=== PATIENT | female | born 1990 | race Hispanic/Latino ===

== ENCOUNTER 2021-07-30 11:47 | Emergency (ER) | payer SELFPAY ==
[~2021-07-30] VITALS: Ht 157.5 cm; Wt 61.2 kg
== END 2021-07-30 12:19 | disposition home or self-care (01) ==
LOC: ER 12:03
DX: R05.9 Cough, unspecified (principal); J06.9 Acute upper respiratory infection, unspecified
CPT/HCPCS: 99282

== ENCOUNTER 2022-09-24 14:58 | Emergency (ER) | payer SELFPAY ==
[~2022-09-24] VITALS: Ht 154.9 cm; Wt 72.6 kg
[2022-09-24] MEDS ORDERED: KETOROLAC TROMETHAMINE 30 MG/ML VIAL IV STA (15:23)
[2022-09-24 15:40] LABS: BASOPHILS % 0.3 % (0.0-1.0); EOSINOPHILS # (AUTO) 0.2 (0.0-0.4); EOSINOPHILS % 1.2 % (0.0-6.0); LYMPHOCYTES # (AUTO) 2.1 (1.0-3.2); LYMPHOCYTES % 14.8 % (18.0-39.1); MEAN CORPUSCULAR HEMOGLOBIN 28.3 pg (28-32); MEAN CORPUSCULAR HGB CONC 32.6 g/dL (31-35); MEAN CORPUSCULAR VOLUME 86.9 fL (81-99); MONOCYTES % 7.1 % (4.4-11.3); NEUTROPHILS # (AUTO) 10.9 (2.1-6.9); NEUTROPHILS % 76.3 % (38.7-80.0); PLATELET COUNT 434 x10e3/uL (140-360); RED BLOOD COUNT 4.95 x10e6/uL (3.6-5.1); RED CELL DISTRIBUTION WIDTH 12.9 % (11.7-14.4)
[2022-09-24] MEDS ORDERED: CLINDAMYCIN 600MG / 50ML 50 ML IV ONE (15:45)
[2022-09-24 15:59] LABS: ALBUMIN 3.9 g/dL (3.5-5.0); ALBUMIN/GLOBULIN RATIO 1.3 (0.8-2.0); ANION GAP 11.8 mmol/L (8-16); CALCIUM 8.9 mg/dL (8.4-10.2); CREATININE, SERUM 0.74 mg/dL (0.57-1.11); POTASSIUM 3.8 mmol/L (3.5-5.1)
[2022-09-24] MEDS ORDERED: IOPAMIDOL 370 MG/ML 100 ML INFUS..BTL INJ ONE (16:19)
[2022-09-24] MEDS ORDERED: AMOXICILLIN500 MG PO (16:57)
[2022-09-24] MEDS ORDERED: IBUPROFEN600 MG PO (16:57)
[2022-09-24 17:01] VITALS: BP 122/84
== END 2022-09-24 17:00 | disposition home or self-care (01) ==
LOC: ER 15:01
DX: K04.7 Periapical abscess without sinus (principal); F17.210 Nicotine dependence, cigarettes, uncomplicated
CPT/HCPCS: 36415; 70487; 80053; 84702; 85025; 99283; J1885; Q9967